=== PATIENT | female | born 1990 | race Caucasian/White ===

== ENCOUNTER 2016-12-13 15:38 | Emergency (ER) | payer OTHER ==
[2016-12-13] MEDS ORDERED: NORMAL SALINE 10 ML SYRINGE FLUSH IVP PRN (15:50)
[2016-12-13] MEDS ORDERED: Sodium Chloride 0.9% 1,000 ML PRIMARY IV ONE ×2 (15:50→16:52)
[2016-12-13] MEDS ORDERED: KETOROLAC 15 MG/1 ML VIAL IVP ONE (15:50)
[2016-12-13] MEDS ORDERED: ONDANSETRON 4 MG/2 ML VIAL IVP ONE (15:51)
[2016-12-13] MEDS ORDERED: ACETAMINOPHEN 325 MG TABLET PO ONE (15:51)
[2016-12-13 16:09] LABS: BASOPHILS # (AUTO) 0.03 10*3/UL; BASOPHILS % (AUTO) 0.4 % (0-1); EOSINOPHILS # (AUTO) 0.01 10*3/UL; EOSINOPHILS % (AUTO) 0.1 % (0-8); HEMATOCRIT 38.1 % (37.0-47.0); LYMPHOCYTES # (AUTO) 0.69 10*3/uL; MEAN CORPUSCULAR HEMOGLOBIN 29.3 PG (27-31); MEAN CORPUSCULAR HGB CONC 34.1 g/dL (33-37); MEAN CORPUSCULAR VOLUME 85.8 FL (81-99); MEAN PLATELET VOLUME 9.4 FL (7.4-12.2); MONOCYTES # (AUTO) 0.13 10*3/UL (0.3-0.8); MONOCYTES % (AUTO) 1.6 % (5-15); NEUTROPHILS # (AUTO) 7.01 10*3/UL; PLATELET MORPHOLOGY COMMENT NORMAL MORPHOLOGY (NORM); RBC MORPHOLOGY COMMENT NORMAL MORPHOLOGY (NORM); RED BLOOD COUNT 4.44 10^6/uL (4.20-5.40); WBC MORPHOLOGY COMMENT NORMAL MORPHOLOGY (NORM)
[2016-12-13 16:14] VITALS: RESP 22
[2016-12-13 16:20] VITALS: TEMP 100
[2016-12-13 16:20] LABS: BLOOD UREA NITROGEN 12 mg/dL (7-22); C-REACTIVE PROTEIN 2.7 mg/dL (0.0-0.9); CALCIUM 9.2 mg/dL (8.7-10.7); EST GLOMERULAR FILTRATION > 60 (>60 ml/min/1.73m(2)); MAGNESIUM 1.5 mg/dL (1.6-2.4); SERUM ALBUMIN 3.9 g/dL (3.5-4.8)
--- NOTE | 2016-12-13 16:30 | PDOC ---
General Adult HPI - General Chief Complaint: General Medical Stated Complaint: fever/bodyaches Date Seen by Provider: 12/13/16 Time Seen by Provider: 16:05 Source: POSITIVE: Patient Exam Limitations: POSITIVE: No limitations Nurse's Notes Reviewed & Considered: Yes - History of Present Illness Initial Comment: The patient is a 26-year-old female who presents to the emergency department with complaints of fevers and general malaise. She states that she had onset of fever and nausea on Wednesday of last week. She states that she felt like she might have a stomach flu. Symptoms seem to resolve for the most part however she did not feel well again on Wednesday at work. Today she has been running a fever all morning and had chills. She has general malaise and muscle aches. She last took ibuprofen at 9:30 this morning. She denies any associated sore throat, cough. She did have some congestion earlier last week. She denies abdominal pain however does have some pain in her right lower back that radiates around to the front. She denies urinary symptoms. Her last menstrual cycle was 45 days ago. She did travel to [place] at the end of November. She is generally healthy otherwise. No one else at home is ill with similar symptoms. Have you received a tetanus shot in the past 10 years?: Yes - Patient Home Medications Home Medications: Home Medications Hydroxyzine Pamoate [Vistaril] 25 mg PO PRN #20 cap 12/27/14 Venlafaxine HCl ER [Effexor Xr Cap] 1 cap PO DAILY #90 cap 10/24/15 - Patient Allergies Allergies/Adverse Reactions: Allergies Allergy/AdvReac Type Severity Reaction Status Date / Time No Known Drug Allergies Allergy NOT Verified 12/13/16 16:27 APPLICABLE Past Medical History - heen HEENT History: Denies History Cardiovascular History: Denies History Respiratory History: Denies History Gastrointestinal History: Denies History, GERD Additional Gastrointestinal History: with preg uses tums not even daily Genitourinary History: Recurrent UTI Endocrine History: Denies History Musculoskeletal History: Denies History Neurological History: Denies History Blood Disorders: Denies History Additional Blood Disorders History: ho of blood transfusion 8 years ago with child Psychiatric History: Denies History History of Sexually Transmitted Diseases: No Female Reproductive History: Denies History LMP: 12/03/2016 Obstetrical History: Denies History Cancer History: Denies History In Past Year Been Physically Harmed or Verbally Threatened: No History of MDRO: No History of Other Communicable Diseases: No Tobacco Use: Current Every Day Smoker Alcohol Use: None Substance Use Type: None Previous Surgical History: No Anesthesia Reactions: No Malignant Hyperthermia: No Significant Family History: Cancer Additional Family History: fathers side breast cancer Past Medical History Reviewed: Reviewed - No Changes ROS - Limitations ROS Limitations: No Limitations Constitution: REPORTS: Chills, Fever, Weakness (Generalized weakness and malaise ) Cardiovascular: DENIES: Chest Pain Respiratory: REPORTS: Denies Resp Symptoms Neurological: REPORTS: Headache (Mostly today). DENIES: Numbness, Weakness Gastrointestinal: REPORTS: Nausea. DENIES: Abdominal Pain, Vomitting, Diarrhea , Constipation Endocrine: REPORTS: Fatigue Musculoskeletal: REPORTS: Muscle Aches Genitourinary: REPORTS: Flank Pain (Right lower back pain that radiates around to the front). DENIES: Dysuria, Hematuria, Difficulty Urinating Eyes: REPORTS: Other (Her eyes are somewhat sensitive to light). DENIES: Vision Changes ENT: REPORTS: Congestion (She did have some nasal congestion and drainage last week). DENIES: Sore Throat Skin: DENIES: Rash General Adult Exam - General Appearance General Appearance: POSITIVE: Alert, Cooperative, No Acute Distress, Other (She does appear ill on arrival) - HEENT HEENT: POSITIVE: Head Inspection Nml, Eyes Inspection Nml, Ears Inspection Nml, Pharynx Inspect. Nml, Dry Mucous Membranes - Neck Neck: POSITIVE: Normal Inspection. NEGATIVE: Lymphadenopathy, Stiff Neck - Respiratory Respiratory: POSITIVE: No Respiratory Distress, Breath Sounds Normal - Cardiovascular Cardiovascular: POSITIVE: Regular Rate & Rhythm, No Murmur Peripheral Pulses: Dorsalis-pedis (R): 2+, Dorsalis-pedis (L): 2+ - Abdomen Abdomen: Soft: (All Quadrants), Denies Tenderness: (All Quadrants), No Distention: (All Quadrants) - Back Back: POSITIVE: Normal Inspection. NEGATIVE: CVA Tenderness - Skin Skin: POSITIVE: Normal Color, No Rash - Extremities Extremity: Normal ROM: (All Extremities), Normal Inspection: (All Extremities) - Neurological / Psychological Neurological: POSITIVE: Other (No focal neurologic deficits) General Adult Progress - Results Reviewed by me Lab Results Reviewed: Yes Lab Results:: Laboratory Results 12/13/16 12/13/16 Range/Units 16:00 17:05 WBC 7.88 (4.8-10.8) 10^3/uL RBC 4.44 (4.20-5.40) 10^6/uL Hgb 13.0 (12.0-16.0) g/dL Hct 38.1 (37.0-47.0) % MCV 85.8 (81-99) FL MCH 29.3 (27-31) PG MCHC 34.1 (33-37) g/dL RDW Std Deviation 40.2 (39-50) fL RDW Coeff of Jazmin 13.2 (11.5-14.5) % Plt Count 331 (140-350) 10*3/uL MPV 9.4 (7.4-12.2) FL Immature Gran % (Auto) 0.1 (0-5) % Neut % (Auto) 89.0 H (50-80) % Lymph % (Auto) 8.8 L (10-50) % [place] % (Auto) 1.6 L (5-15) % Eos % (Auto) 0.1 (0-8) % Baso % (Auto) 0.4 (0-1) % Immature Gran # (Auto) 0.01 10*3/UL Neut # (Auto) 7.01 10*3/UL Lymph # (Auto) 0.69 10*3/uL [place] # (Auto) 0.13 L (0.3-0.8) 10*3/UL Eos # (Auto) 0.01 10*3/UL Baso # (Auto) 0.03 10*3/UL WBC Morphology Comment Normal morphology (NORM) Plt Morphology Comment Normal morphology (NORM) RBC Morph Comment Normal morphology (NORM) Sodium 138 (135-145) meq/L Potassium 3.5 L (3.8-5.2) meq/L Chloride 105 (98-112) meq/L Carbon Dioxide 20 L (23-33) meq/L Anion Gap 13 (5-20) BUN 12 (7-22) mg/dL Creatinine 0.6 (0.50-1.20) mg/dL Estimated GFR > 60 (>60 ml/min/1.73m(2)) BUN/Creatinine Ratio 20.00 (6-20) Glucose 85 (78-110) mg/dL Calculated Osmolality 284.0 (267-292) mOsm/kg Lactic Acid 2.6 H (0.70-2.10) MMOL/L Calcium 9.2 (8.7-10.7) mg/dL Magnesium 1.5 L (1.6-2.4) mg/dL Total Bilirubin 0.9 (0.3-1.2) mg/dL AST 38 (8-39) IU/L ALT 38 (9-52) IU/L Alkaline Phosphatase 69 (38-126) IU/L C-Reactive Protein 2.7 H (0.0-0.9) mg/dL Total Protein 7.0 (6.1-8.0) g/dL Albumin 3.9 (3.5-4.8) g/dL Globulin 3.1 (2.50-4.10) g/dL Albumin/Globulin Ratio 1.20 L (1.3-2.0) mg/g Serum HCG, Qual Negative Ur Collection Type Voided specimen Urine Color Yellow Urine Clarity Clear (CLEAR) Urine pH 5.5 (5.0-8.5) Ur Specific Julian <=1.005 (1.005-1.030) Urine Protein Negative (NEG) mg/dl Urine Glucose (UA) Negative (NEG) mg/dL Urine Ketones Negative (NEG) Urine Occult Blood Negative (NEG) Urine Nitrate Negative (NEG) Urine Bilirubin Negative (NEG) Urine Urobilinogen 0.2 (0.2) EU/dL Ur Leukocyte Esterase Negative (NEG) Ur Culture Indicated? Culture not set - Patient's Progress MDM / ED Course: The patient was febrile on arrival with a temperature of 100.0. Rapid strep was negative. An IV was established and blood cultures and lactate were drawn. She did receive 1 L bolus of normal saline as well as Toradol 15 mg IV and Tylenol 650 mg by mouth. She was starting to feel better and her headache was resolving. Nausea was improved. She was given a second liter of IV fluid. Her lab work is all essentially unremarkable except for a mildly elevated CRP and a mildly low potassium and magnesium. She did receive 1 g of magnesium IV. After 2 L of fluid and administration of Toradol, Tylenol and magnesium the patient was feeling significantly better. Her headache was minimal. Repeat exam revealed no nuchal rigidity and good range of motion of her neck without any significant pain. Repeat abdominal exam revealed no abdominal tenderness and no CVA tenderness. Her urinalysis was also normal. At this point it appears that she has some viral syndrome. Will continue symptomatic treatment for now. Blood cultures are pending. She is advised return to the emergency room if she develops worsening headache, abdominal pain, any worsening or change in symptoms and will follow-up with primary care if continued fever in 2- 3 days. - Consult Counseled: POSITIVE: Patient, Family, RE: Lab Results, RE: DX, RE: Need for F/U Patient Care Time - Estimated PCT Patient Care Time (In Minutes): 40 Vital Signs - Recent Vital Signs Vital Signs: Vital Signs (Last 8 hours) Temp Pulse Resp BP Pulse Ox 12/13/16 16:19 100 F H 12/13/16 16:03 100.0 F H 125 H 22 107/61 98 - VS Reviewed Vital Signs Reviewed: Yes Discharge Clinical Impression: Viral syndrome, Dehydration, Hypomagnesemia Discharge Disposition: Discharged to Home Condition: Stable Patient Instructions Given at Discharge: Dehydration (ED), Viral Syndrome (ED) Additional Instructions: The exact cause of your fever and general malaise was not determined. Your strep test was negative, urinalysis was negative and your blood work was all essentially unremarkable except for a mildly elevated inflammatory marker and mildly low magnesium. The magnesium was replaced and your IV fluids. You also appeared to be dehydrated. It is thought that this fever most likely is being caused by a viral infection and should hopefully resolve over the next several days. Recommend that she return to the emergency room if he developed increased headache, dehydration, abdominal pain, any worsening or change in symptoms. Recommend follow-up with primary care if continued fever in 2-3 days. Follow Up With: ALEXANDRA BRO FNP [Primary Care Provider] -
[2016-12-13] MEDS ORDERED: Magnesium Sulfate 1gm (Premix) 1 GM in Dextrose 1 BAG IV ONE (16:52)
[2016-12-13] MEDS ORDERED: Magnesium Sulfate 1gm (Premix) 100 ML IV ONE (16:59)
[2016-12-13 17:11] LABS: BILIRUBIN,URINE NEGATIVE (NEG); CLARITY,URINE CLEAR (CLEAR); COLOR,URINE YELLOW; GLUCOSE, URINE (UA) NEGATIVE (NEG); NITRATE,URINE NEGATIVE (NEG); OCCULT BLOOD,URINE NEGATIVE (NEG); PH,URINE 5.5 (5.0-8.5); PROTEIN,URINE NEGATIVE (NEG); UROBILINOGEN,URINE 0.2 EU/dL (0.2)
[2016-12-13 17:12] LABS: URINE SAMPLE TYPE VOIDED SPECIMEN
== END 2016-12-13 17:53 | disposition home or self-care (01) ==
LOC: ER 15:38
DX: B34.9 Viral infection, unspecified (principal); E86.0 Dehydration; E83.42 Hypomagnesemia; R53.1 Weakness; R51 Headache; M54.5 Low back pain; R50.9 Fever, unspecified
CPT/HCPCS: 36415; 80053; 81003; 83605; 83735; 84703; 85025; 86140; 87040; 87802; 96361; 96365; 96375; 99282; 99283; J1885; J2405; J3475; J7030